=== PATIENT | female | born 1965 | race Caucasian/White ===

== ENCOUNTER 2024-10-31 13:32 | Outpatient (CLI) | payer OTHER, SELFPAY ==
--- NOTE | 2024-10-31 13:30 | DI.RAD_ITS ---
Exam(s) XR KNEE RT 4V AP,LAT,FIONA,PAT EXAM: XR KNEE RT 4V AP,LAT,FIONA,PAT CLINICAL HISTORY: RIGHT KNEE PAIN. TECHNIQUE: 2D digital imaging was performed of the right knee. Four views obtained. Merchant, AP, lateral and PA tunnel views were obtained. COMPARISON: No exams were available for comparison FINDINGS: BONES: No acute fracture is present. No bony destructive lesion is seen. JOINTS: In the medial femoral tibial joint, there is mild joint space narrowing and a small osteophyte at the medial tibial plateau. No joint effusion is seen. SOFT TISSUE: Normal. IMPRESSION: Mild degenerative changes in the medial femoral tibial joint. DATA REPOSITORY: RADIATION DOSE DELIVERED:
== END 2024-10-31 13:33 | disposition home or self-care (01) ==
LOC: DIORS 13:32
PROVIDERS: PCP Nurse Practitioner Adult Health; Referring Provider Nurse Practitioner Adult Health; Visit Provider Student in an Organized Health Care Education/Training Program
DX: M25.561 Pain in right knee (principal); M17.11 Unilateral primary osteoarthritis, right knee
CPT/HCPCS: 73564

== ENCOUNTER 2025-05-13 09:00 | Outpatient (CLI) | payer OTHER, SELFPAY ==
[2025-05-13 08:46] LABS: HCT 38.3 % (36.0-46.0); HGB 12.8 g/dL (11.2-15.7)
[2025-05-13 09:05] LABS: Hemoglobin A1C 5.4 % (<5.7)
[2025-05-13 09:06] LABS: TSH (W/Ref FT4) 1.66 uIU/mL (0.55-4.78); Vitamin B12 337 pg/mL (211-911)
[2025-05-13 09:07] LABS: Folate 7.0 ng/mL (>5.38)
[2025-05-13 09:15] LABS: ALT 10 U/L (10-49); AST 20 U/L (<34); Albumin 4.1 g/dL (3.2-5.0); Alkaline Phosphatase 60 U/L (46-116); Anion Gap 7.6 mmol/L (3-11); BUN 13 mg/dL (9-23); Bilirubin, Total 0.7 mg/dL (0.2-1.2); CO2 28.4 mmol/L (20.0-31.0); Calcium 9.1 mg/dL (8.3-10.6); Chloride 105 mmol/L (98-107); Cholesterol 237 mg/dL (<200); Glucose 81 mg/dL (74-106); HDL Cholesterol 82 mg/dL (>or=50); Potassium 4.4 mmol/L (3.5-5.1); Sodium 141 mmol/L (136-145); Total Protein 6.7 g/dL (5.7-8.2)
== END 2025-05-13 09:01 | disposition home or self-care (01) ==
LOC: LBO 09:01
PROVIDERS: PCP Nurse Practitioner Adult Health; Visit Provider Nurse Practitioner Adult Health
DX: Z86.59 Personal history of other mental and behavioral disorders (principal); E78.2 Mixed hyperlipidemia; R73.03 Prediabetes; Z86.2 Personal history of diseases of the blood and blood-forming organs and certain disorders involving the immune mechanism; L65.9 Nonscarring hair loss, unspecified; G43.109 Migraine with aura, not intractable, without status migrainosus
CPT/HCPCS: 36415; 80053; 80061; 82607; 82746; 83036; 84443; 85014; 85018